=== PATIENT | female | born 1970 | race Caucasian/White ===

== ENCOUNTER 2016-11-16 11:19 | Day surgery (SDC) | payer BC ==
[2016-11-13 15:31] VITALS: BMI 21.6
[~2016-11-16 11:19] MED LIST: DEXAMETHASONE SOD PHOSPHATE 10 MG/ML 1 ML VIAL IV ONE; LACTATED RINGERS 1,000 ML IV SCH; LIDOCAINE 1% 20 ML VIAL (10MG/ML) FOR IV START INTRADERMA PRN; ONDANSETRON 4 MG/2 ML VIAL IVP ONE; Pre Op ABX Message 1 EACH MISC MISCELLANE ONE; SCOPOLAMINE 1.5MG/72HR PATCH TRANSDERM ONE; fentaNYL (PF) 50 MCG/ML 2 ML AMP IV PRN
[2016-11-16 12:06] VITALS: RESP 16
[2016-11-16] MEDS ORDERED: LACTATED RINGERS 1,000 ML IV ONE ×2 (12:25→13:49)
[2016-11-16] MEDS ORDERED: MIDAZOLAM 2 MG/2 ML VIAL ONE (12:25)
[2016-11-16] MEDS ORDERED: PROPOFOL 10 MG/ML 20 ML VIAL IV ONE (12:25)
[2016-11-16] MEDS ORDERED: ONDANSETRON 4 MG/2 ML VIAL ONE (12:25)
[2016-11-16] MEDS ORDERED: fentaNYL (PF) 50 MCG/ML 2 ML AMP ONE (12:25)
[2016-11-16 13:26] VITALS: TEMP 97.2
[2016-11-16 14:30] VITALS: BP 103/64; PULSE 64
--- NOTE | 2016-11-19 13:22 | OP ---
DATE OF SERVICE: 11/16/2016 SURGEON: MARIALUISA SILVEIRA DO MEDICAL OFFICE RECEPTIONIST ASSISTANT: PREOPERATIVE DIAGNOSIS: Cellulitis of the distal interphalangeal joint of the right middle finger. POSTOPERATIVE DIAGNOSIS: Cellulitis of the distal interphalangeal joint of the right middle finger. Culture pending. OPERATION: Incision and drainage of cyst distal interphalangeal joint of the right middle finger and antibiotic cement placement. ANESTHESIA: ESTIMATED BLOOD LOSS: SPECIMENS REMOVED: COMPLICATIONS: OPERATIVE FINDINGS: DESCRIPTION OF PROCEDURE: The patient was taken to the operative suite and placed in supine position. IV sedation was performed by the department of anesthesiology. Hibiclens scrub was carried out over the right hand. Sterile drapes applied in the usual manner. Pneumatic tourniquet was inflated to 250 mmHg. The quarter-inch Dominique drained was placed along the base of the right middle finger and digital block performed. A longitudinal incision was then made of the right middle finger. Dissection through subcutaneous tissue was performed. A dome of the cyst area at the distal portion of middle phalanx measuring approximately 1cm. The area was cultured. No evidence of purulence at this time. The debridement was performed with rongeur at the joint. The area was irrigated copiously. Antibiotic solution with cement was then mixed and a small portion was placed in the cyst area. The skin was then reapproximated with 4-0 nylon suture in interrupted fashion. The Dominique drain was removed. Pneumatic tourniquet deflated. Sterile Adaptic 4 x 4 compression dressing was applied. The patient was returned to the recovery room in satisfactory postop condition. GROSS PATHOLOGY: There was evidence of 1cm cyst at area of fixation. Patient will be followed by Department of Infectious Disease. [facility]
== END 2016-11-16 14:37 | disposition home or self-care (01) ==
LOC: OR 11:19
PROVIDERS: ATTEND Orthopaedic Surgery
DX: L03.011 Cellulitis of right finger (principal); M86.8X4 Other osteomyelitis, hand; F41.9 Anxiety disorder, unspecified; Z79.2 Long term (current) use of antibiotics; Z79.899 Other long term (current) drug therapy; Z88.1 Allergy status to other antibiotic agents; Z88.5 Allergy status to narcotic agent; Z87.891 Personal history of nicotine dependence
CPT/HCPCS: 87070; 87205; 87075; 26160; C1713; J2250; J1100; J2405; J3010; J2704

== ENCOUNTER 2016-12-19 10:52 | Inpatient (IN) | payer BC ==
[2016-12-19 11:40] VITALS: BMI 21.6
[2016-12-19] MEDS ORDERED: NALOXONE 0.4 MG/ML 1 ML VIAL IV PRN (12:08)
[2016-12-19] MEDS ORDERED: ONDANSETRON 4 MG/2 ML VIAL IVP PRN (12:08)
[2016-12-19] MEDS ORDERED: ACETAMINOPHEN TAB 325 MG TAB PO PRN (12:08)
[2016-12-19] MEDS ORDERED: HYDROcodone/APAP 5-325MG 1 EACH TAB PO PRN (12:08)
[2016-12-19 12:51] LABS: Basophils % (A) 1 %; CH 31.9; Eosinophils # (A) 0.2 k/uL (0-0.7); Eosinophils % (A) 4 %; HDW 2.32; HGB 14.8 gm/dL (11.4-16.0); Luc # (Auto) 0.11; Luc % (Auto) 2; Lymphocytes % (A) 36 %; MCH 31.6 pg (25.0-35.0); MCHC 33.5 g/dL (31.0-37.0); MCV 94.2 fL (80.0-100.0); Mean Platelet Volume 8.5; Monocytes # (A) 0.3 k/uL (0-1.0); Monocytes % (A) 6 %; Neutrophils # (A) 2.8 k/uL (1.3-7.7); Neutrophils % (A) 51 %; RBC 4.68 m/uL (3.80-5.40); RDW 13.3 % (11.5-15.5); WBC 5.4 k/uL (3.8-10.6); WBC (Perox) 5.38
[2016-12-19] MEDS: LACTATED RINGERS 1,000 ML IV SCH (12:53)
[2016-12-19 13:09] LABS: ALT 43 U/L (9-52); AST 27 U/L (14-36); Alkaline Phosphatase 34 U/L (38-126); Anion Gap 6 mmol/L; Blood Urea Nitrogen 9 mg/dL (7-17); Calcium 9.6 mg/dL (8.4-10.2); Carbon Dioxide 28 mmol/L (22-30); Chloride 107 mmol/L (98-107); Glucose 78 mg/dL (74-99); Non-African American GFR(MDRD) >60 (>60 ml/min/1.73 sqM); Potassium 4.6 mmol/L (3.5-5.1); Sodium 141 mmol/L (137-145); Total Bilirubin 0.8 mg/dL (0.2-1.3); Total Protein 6.7 g/dL (6.3-8.2)
[2016-12-19] MEDS: ERYTHROMYCIN IV 500 MG in SODIUM CHLORIDE 0.9% 250 ML IVPB SCH ×2 (13:48→18:00)
[2016-12-19] MEDS ORDERED: HYDROmorphone 1 MG/ML 1 ML SYRINGE IVP PRN (13:56)
[2016-12-19] MEDS: HYDROmorphone 1 MG/ML 1 ML SYRINGE IVP PRN ×2 (17:23→20:03)
--- NOTE | 2016-12-19 20:53 | P.CONS ---
History of Present Illness - Reason for Consult Consult date: 12/19/16 - Chief Complaint Pain in the right hand middle finger - History of Present Illness 46 year old female presents Hospital for ongoing evaluation of her right hand third finger status post trauma last year. The patient relates that she caught a [employer] football that was waterlogged resulting in the injury to the middle finger. It was pinned and originally did quite well. Eventually she developed a significant infection. In April without evidence of MSSA infection was treated originally with Ancef which causes significant skin eruption. He finished up her therapy with vancomycin. Continue to have trouble since that point in time with pain swelling and deformity to the finger. It affects her ability to do her job. She recently had further surgery where a cyst was found and this was debrided and bony segment was placed. Despite this she continues to have ongoing drainage of what she is describing is a somewhat purulent material. The finger remains deformed warm erythematous and painful. She constantly is admitted for further intervention. 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 Denies fevers, chills or rigors but has ongoing significant pain at the site. Anti-inflammatories bother her stomach greatly. Occasional [place] was helpful. Review of Systems HEENT:Denies headache or acute visual change. Denies sinus or mouth discomforts. Denies neck stiffness or pain. Denies significant oral cavity pain. Denies difficulty on swallowing. Lungs: Denies significant shortness of breath, cough, sputum production, or hemoptysis. Cardiovascular: Denies significant shortness of breath, chest pain, chest wall pain, orthopnea, dyspnea on exertion, syncope Gastrointestinal:Denies nausea, vomiting, diarrhea, constipation, hematemesis, melena, hematochezia. No no significant change of bowel habit noticed. Musculoskeletal: Has significant pain and swelling to the right hand third finger other joints are intact. Skin: As per the HPI Neuro: Denies headache or visual change. Denies any new onset weakness or difficulty with ambulation. Denies falls or seizures. Psychiatric: Difficulty with sleep and is having anxiety. Endocrine: Denies significant fatigue, denies significant weight loss or weight gain. Past Medical History Past Medical History: Musculoskeletal Disorder Additional Past Medical History / Comment(s): POST-OP STAPH INFECTION WITH OSTEOMYELITIS RIGHT MIDDLE FINGER., STATES PAIN AND SWELLING OF FINGER. History of Any Multi-Drug Resistant Organisms: None Reported Past Surgical History: Section, Hysterectomy, Orthopedic Surgery Additional Past Surgical History / Comment(s): neck surgery c4-6, laminectomy, foraminotomy. , RUPTURED TENDON WITH PIN AND REMOVAL RIGHT MIDDLE FINGER. Past Anesthesia/Blood Transfusion Reactions: No Reported Reaction Past Psychological History: No Psychological Hx Reported Additional Psychological History / Comment(s): . Lives in the home with her ex- and her children. Pet dog. 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 No experience no international travel. Tobacco smoking as a youth. No recreational drug use. No alcohol abuse Smoking Status: Never smoker Past Alcohol Use History: None Reported Additional Past Alcohol Use History / Comment(s): QUIT SMOKING APPROX 20 YRS AGO. STATES SHE WAS A SOCIAL SMOKER. Past Drug Use History: None Reported - Past Family History Mother Family Medical History: Coronary Artery Disease (CAD), Hypertension, Musculoskeletal Disorder Father Family Medical History: Cancer, Coronary Artery Disease (CAD), Hypertension, Musculoskeletal Disorder Sister(s) Family Medical History: Musculoskeletal Disorder Medications and Allergies Home Medications and Allergies Comment(s): Current Medications Acetaminophen (Tylenol Tab) 650 mg PO Q6HR PRN PRN Reason: Mild Pain or Fever > 100.5 Hydrocodone Bitart/Acetaminophen ([place] 7.5-325) 1 each PO Q4HR PRN PRN Reason: Moderate Pain Hydromorphone HCl (Dilaudid) 1 mg IVP Q4HR PRN PRN Reason: Severe Pain Last Admin: 12/19/16 20:03 Dose: 1 mg Lactated Ringer's (Lactated Ringers) 1,000 mls @ 20 mls/hr IV .Q24H [facility] Last Admin: 12/19/16 12:53 Dose: 20 mls/hr Erythromycin Lactobionate 500 (mg/ Sodium Chloride) 250 mls @ 125 mls/hr IVPB Q6HR [facility] Last Admin: 12/19/16 18:00 Dose: 125 mls/hr Naloxone HCl (Narcan) 0.2 mg IV Q2M PRN PRN Reason: Opioid Reversal Ondansetron HCl (Zofran) 4 mg IVP Q8HR PRN PRN Reason: Nausea And Vomiting Home Medications Medication Instructions Recorded Confirmed Type LORazepam [Ativan] 2 mg PO HS 11/13/16 12/19/16 History Hydrocodone/Acetaminophen [[place] 1 tab PO DAILY PRN 12/19/16 12/19/16 History 7.5-325] Allergies Allergy/AdvReac Type Severity Reaction Status Date / Time cefazolin [From Kefzol] Allergy Dyspnea Verified 12/19/16 12:04 morphine Allergy Rash/Hives Verified 12/19/16 12:04 vancomycin AdvReac Intermediate Red Man Verified 12/19/16 12:04 Syndrome- can take if infused slowly. gadodiamide AdvReac Rash/Hives Verified 12/19/16 12:04 Physical Exam Vitals: Vital Signs Temp Pulse Resp BP Pulse Ox 12/19/16 15:47 97 16 12/19/16 15:00 97.4 F L 91 16 103/81 97 12/19/16 11:28 98 F 97 16 160/100 97 Intake and Output 12/19/16 12/19/16 12/19/16 06:59 14:59 22:59 Intake Total 440 Balance 440 Intake: Intake, IV Titration 40 Amount Lactated Ringers 1,000 ml 40 @ 20 mls/hr IV .Q24H [facility] Rx#:[id number] Oral 400 Other: Weight 45.359 kg 45.359 kg Patient Weight 12/20/16 06:59 Weight 45.359 kg Pleasant but anxious 46-year-old woman HEENT: Anicteric conjunctiva are pink and moist nasal mucosa grossly intact without significant lesions, there is no thrush. Neck: The neck is supple without significant lymphadenopathy or thyromegaly. Lungs: Good bilateral air entry without significant crackles or wheezing. There is no significant bronchial sounds. There is no egophony or dullness. Heart: Regular rate and rhythm with an audible S1-S2, no S3 no S4. There is no significant murmur click or rub, PMI was nondisplaced. Abdomen: Positive bowel sounds soft and nontender without palpable masses or organomegaly. There was no guarding or rebound. Extremities: Left hand without abnormalities. Right arm shows evidence ofagain swelling to the forearm arm or wrist. There is no evidence of any epitrochlear or axillary lymphadenopathy. Right hand third finger shows evidence of the deformity distally. There is evidence of some ulceration at the base of the nail with no expressible purulence at this time. There is warmth or erythema distinct tenderness in this area. No telangiectasias under hemorrhages or petechiae The lower extremities are free from significant edema. The peripheral pulses were 2+ and symmetric. Neuro: Awake alert oriented to person place and time. There are no acute new gross focal sensory motor deficits. Results CBC & Chem 7: 12/19/16 12:16 12/19/16 12:16 Labs: Abnormal Lab Results - Last 24 Hours (Table) 12/19/16 Range/Units 12:16 Alkaline Phosphatase 34 L (38-126) U/L Microbiology - Last 24 Hours (Table) 12/19/16 11:00 Wound Culture - Preliminary Hand - Right 12/19/16 11:00 Anaerobic Culture - Preliminary Hand - Right Laboratory Results WBC 5.4 k/uL (3.8-10.6) 12/19/16 12:16 RBC 4.68 m/uL (3.80-5.40) 12/19/16 12:16 Hgb 14.8 gm/dL (11.4-16.0) 12/19/16 12:16 Hct 44.0 % (34.0-46.0) 12/19/16 12:16 MCV 94.2 fL (80.0-100.0) 12/19/16 12:16 MCH 31.6 pg (25.0-35.0) 12/19/16 12:16 MCHC 33.5 g/dL (31.0-37.0) 12/19/16 12:16 RDW 13.3 % (11.5-15.5) 12/19/16 12:16 Plt Count 225 k/uL (150-450) 12/19/16 12:16 Neutrophils % 51 % 12/19/16 12:16 Lymphocytes % 36 % 12/19/16 12:16 Monocytes % 6 % 12/19/16 12:16 Eosinophils % 4 % 12/19/16 12:16 Basophils % 1 % 12/19/16 12:16 Neutrophils # 2.8 k/uL (1.3-7.7) 12/19/16 12:16 Lymphocytes # 2.0 k/uL (1.0-4.8) 12/19/16 12:16 Monocytes # 0.3 k/uL (0-1.0) 12/19/16 12:16 Eosinophils # 0.2 k/uL (0-0.7) 12/19/16 12:16 Basophils # 0.0 k/uL (0-0.2) 12/19/16 12:16 APTT 22.5 sec (22.0-30.0) 12/19/16 12:34 Sodium 141 mmol/L (137-145) 12/19/16 12:16 Potassium 4.6 mmol/L (3.5-5.1) 12/19/16 12:16 Chloride 107 mmol/L (98-107) 12/19/16 12:16 Carbon Dioxide 28 mmol/L (22-30) 12/19/16 12:16 Anion Gap 6 mmol/L 12/19/16 12:16 BUN 9 mg/dL (7-17) 12/19/16 12:16 Creatinine 0.83 mg/dL (0.52-1.04) 12/19/16 12:16 Est GFR (MDRD) Af Amer >60 (>60 ml/min/1.73 sqM) 12/19/16 12:16 Est GFR (MDRD) Non-Af >60 (>60 ml/min/1.73 sqM) 12/19/16 12:16 Glucose 78 mg/dL (74-99) 12/19/16 12:16 Calcium 9.6 mg/dL (8.4-10.2) 12/19/16 12:16 Total Bilirubin 0.8 mg/dL (0.2-1.3) 12/19/16 12:16 AST 27 U/L (14-36) 12/19/16 12:16 ALT 43 U/L (9-52) 12/19/16 12:16 Alkaline Phosphatase 34 U/L (38-126) L 12/19/16 12:16 Total Protein 6.7 g/dL (6.3-8.2) 12/19/16 12:16 Albumin 4.3 g/dL (3.5-5.0) 12/19/16 12:16 Microbiology 12/19/16 11:00 Hand - Right Wound Culture - Preliminary 12/19/16 11:00 Hand - Right Anaerobic Culture - Preliminary Assessment and Plan (1) Osteomyelitis of finger of right hand Narrative/Plan: 46-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 Relates that she had injury to her right hand at home now many months ago. Continues to have difficulty with that site. Original pinning occurred. MSSA infection occurred. Has had some surgical interventions. She's had debridements. Most recently because of the abnormalities seen she was taken to the operating room and debridement occurred and antibiotic cement was placed into the cystic cavity that was formed. Since then she's having increasing difficulties. There is increasing pain and swelling erythema and drainage. She is now admitted. At the time of surgery tomorrow which will be a debridement. Deep tissue cultures should be sent for bacteria and fungus and acid-fast bacilli. Also pathology should be sent to further evaluate for acute and chronic osteomyelitis. Versus other pathology. Antibiotic therapy should be held until cultures at the time of surgery are obtained. Status: Acute
[2016-12-19] MEDS: LORazepam 1 MG TAB PO PRN (22:32)
[2016-12-20] MEDS: HYDROmorphone 1 MG/ML 1 ML SYRINGE IVP PRN ×5 (01:03→21:03)
[2016-12-20] MEDS ORDERED: ONDANSETRON 4 MG/2 ML VIAL IVP ONE (05:56)
[2016-12-20] MEDS: LACTATED RINGERS 1,000 ML IV SCH ×2 (07:12→12:17)
[2016-12-20] MEDS: HYDROcodone/APAP 7.5-325MG 1 EACH TAB PO PRN ×3 (07:38→21:44)
--- NOTE | 2016-12-20 10:55 | P.HPOR ---
History of Present Illness H&P Date: 12/19/16 Chief Complaint: Right middle finger infection This is a 46-year-old female who has had ongoing problems with her right middle finger since injury last year. She had a mallet finger deformity from an injury with a nerve football. The finger was pinned for male finger repair. She did well initially. However, she developed infection to the finger which has been ongoing. She has had debridements in the past. She denies fever or chills. She has had recent worsening of the finger pain. She's also had some purulent drainage from the area. She is admitted for incision and drainage of the finger as well as infectious disease evaluation. Past Medical History Past Medical History: Musculoskeletal Disorder Additional Past Medical History / Comment(s): POST-OP STAPH INFECTION WITH OSTEOMYELITIS RIGHT MIDDLE FINGER., STATES PAIN AND SWELLING OF FINGER. History of Any Multi-Drug Resistant Organisms: None Reported Past Surgical History: Section, Hysterectomy, Orthopedic Surgery Additional Past Surgical History / Comment(s): neck surgery c4-6, laminectomy, foraminotomy. , RUPTURED TENDON WITH PIN AND REMOVAL RIGHT MIDDLE FINGER. Past Anesthesia/Blood Transfusion Reactions: No Reported Reaction Past Psychological History: No Psychological Hx Reported Additional Psychological History / Comment(s): . Lives in the home with her ex- and her children. Pet dog. 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 No experience no international travel. Tobacco smoking as a youth. No recreational drug use. No alcohol abuse Smoking Status: Never smoker Past Alcohol Use History: None Reported Additional Past Alcohol Use History / Comment(s): QUIT SMOKING APPROX 20 YRS AGO. STATES SHE WAS A SOCIAL SMOKER. Past Drug Use History: None Reported - Past Family History Mother Family Medical History: Coronary Artery Disease (CAD), Hypertension, Musculoskeletal Disorder Father Family Medical History: Cancer, Coronary Artery Disease (CAD), Hypertension, Musculoskeletal Disorder Sister(s) Family Medical History: Musculoskeletal Disorder Medications and Allergies Home Medications Medication Instructions Recorded Confirmed Type LORazepam [Ativan] 2 mg PO HS 11/13/16 12/19/16 History Hydrocodone/Acetaminophen [[place] 1 tab PO DAILY PRN 12/19/16 12/19/16 History 7.5-325] Allergies Allergy/AdvReac Type Severity Reaction Status Date / Time cefazolin [From Kefzol] Allergy Dyspnea Verified 12/19/16 12:04 morphine Allergy Rash/Hives Verified 12/19/16 12:04 vancomycin AdvReac Intermediate Red Man Verified 12/19/16 12:04 Syndrome- can take if infused slowly. gadodiamide AdvReac Rash/Hives Verified 12/19/16 12:04 Physical Examination This is a pleasant 38-year-old female in no acute distress. She is alert and oriented 3 exam of the right upper extremity reveals small area of drainage from the finger wound. There is minimal erythema. There is mild soft tissue swelling. She has limited motion to the DIP joint of the finger. She has fairly good motion to the MCP joints of the fingers. Neurovascular status the upper extremity is intact. Results - Labs Labs: Abnormal Lab Results - Last 24 Hours (Table) 12/19/16 Range/Units 12:16 Alkaline Phosphatase 34 L (38-126) U/L Microbiology - Last 24 Hours (Table) 12/19/16 11:00 Gram Stain - Preliminary Hand - Right Wound Culture - Preliminary 12/19/16 11:00 Anaerobic Culture - Preliminary Hand - Right H & H 12/19/16 Range/Units 12:16 Hgb 14.8 (11.4-16.0) gm/dL Hct 44.0 (34.0-46.0) % Result Diagrams: 12/19/16 12:16 12/19/16 12:16 Assessment and Plan (1) Cellulitis of right middle finger Status: Acute (2) Osteomyelitis of finger of right hand Status: Acute (3) Status post tendon repair Status: Acute Plan: The clinical findings are discussed with the patient. She is admitted for IV antibiotics and infectious disease evaluation as well as incision and drainage of the finger. We're planning or today and will most likely keep her inpatient for 48 hours for antibiotics. We have consulted Dr. Yoo for infectious disease evaluation.
--- NOTE | 2016-12-20 11:26 | CONS ---
SUBJECTIVE: A 46-year-old white female who has had osteomyelitis on and off with chronic right hand third finger infection for 10 months, admitted for IV antibiotics and wound debridement in the morning. She is having no chest pain, shortness of breath. No lightheadedness, dizziness or syncope. She is having extreme anxiety as her hand has not healed in 10 months. ALLERGIES: MORPHINE, VANCOMYCIN, ( ), KEFZOL. HOME MEDICATIONS: Zofran, Ativan, Dilaudid. REVIEW OF SYSTEMS: PSYCH: Anxious, nervous. CARDIAC: Negative. PULMONARY: Negative. GI: Negative. : Negative. VASCULAR: Negative. HEMATOLOGIC: Negative. IMMUNE: Negative. VITAL SIGNS: Temperature 98, pulse 91 to 97, respiratory 14 to 18, blood pressure 103 to 160 over 81 to 100. O2 97% on room air. CARDIOVASCULAR: S1, S2. LUNGS: Clear. GI: Soft. HEMATOLOGIC: Negative Homans. VASCULAR: Normal dorsalis pedis and posterior radial pulses. OPHTHALMOLOGIC: Pupils are equal, round and reactive to light and accommodation. NEUROLOGIC: Alert and oriented x3. ASSESSMENT: 1. Right finger osteomyelitis third digit. 2. Cellulitis of the right hand third digit. PLAN: IV antibiotics. Wound care. Please see further orders 24 to 48 hours. MTDD
[2016-12-20] MEDS ORDERED: LACTATED RINGERS 1,000 ML IV ONE ×2 (12:08→13:15)
[2016-12-20] MEDS ORDERED: MIDAZOLAM 2 MG/2 ML VIAL IV ONE (12:24)
[2016-12-20] MEDS ORDERED: fentaNYL (PF) 50 MCG/ML 2 ML AMP IV ONE (12:25)
[2016-12-20] MEDS ORDERED: fentaNYL (PF) 50 MCG/ML 2 ML AMP ONE (13:01)
[2016-12-20] MEDS ORDERED: PROPOFOL 10 MG/ML 20 ML VIAL IV ONE (13:01)
[2016-12-20] MEDS ORDERED: LIDOCAINE 1% INJ 10MG/ML (20 ML MDV) ONE (13:01)
[2016-12-20] MEDS ORDERED: MIDAZOLAM 2 MG/2 ML VIAL ONE (13:01)
[2016-12-20] MEDS: HYDROmorphone 1 MG/ML 1 ML SYRINGE IVP ONE ×4 (14:07→14:29)
[2016-12-20] MEDS ORDERED: KETOROLAC 30 MG/ML 1 ML VIAL IVP ONE (14:16)
[2016-12-20 16:20] LABS: Basophils % (A) 0 %; CH 31.9; CHCM 34.5; Eosinophils # (A) 0.3 k/uL (0-0.7); Eosinophils % (A) 4 %; HCT 39.2 % (34.0-46.0); HDW 2.39; HGB 13.6 gm/dL (11.4-16.0); Luc # (Auto) 0.09; Luc % (Auto) 2; Lymphocytes # (A) 2.6 k/uL (1.0-4.8); Lymphocytes % (A) 44 %; MCH 32.3 pg (25.0-35.0); MCHC 34.8 g/dL (31.0-37.0); MCV 92.8 fL (80.0-100.0); Mean Platelet Volume 8.8; Monocytes # (A) 0.3 k/uL (0-1.0); Monocytes % (A) 5 %; Neutrophils # (A) 2.6 k/uL (1.3-7.7); Neutrophils % (A) 45 %; RBC 4.22 m/uL (3.80-5.40); RDW 12.7 % (11.5-15.5); WBC 5.9 k/uL (3.8-10.6); WBC (Perox) 6.12
[2016-12-20] MEDS: LORazepam 1 MG TAB PO PRN (21:03)
[2016-12-21] MEDS: HYDROmorphone 1 MG/ML 1 ML SYRINGE IVP PRN ×6 (00:57→20:36)
[2016-12-21] MEDS: LACTATED RINGERS 1,000 ML IV SCH ×3 (05:01→10:55)
[2016-12-21] MEDS: HYDROcodone/APAP 7.5-325MG 1 EACH TAB PO PRN ×4 (06:16→23:21)
[2016-12-21] MEDS ORDERED: hydrOXYzine PAMOATE 25 MG CAP PO PRN (12:46)
--- NOTE | 2016-12-21 16:35 | P.PN ---
Subjective Principal diagnosis: Right middle finger cellulitis/infection and chronic mallet finger Patient is a pleasant 46-year-old female seen at bedside this afternoon. She has had ongoing problems with her right middle finger since injury last year. She had a mallet finger deformity from an injury with a nerve football. The finger was pinned for male finger repair. She did well initially. However, she developed infection to the finger which has been ongoing. She has had debridements in the past. She denies fever or chills. She has had recent worsening of the finger pain. She's also had some purulent drainage from the area. She was admitted 12/20/2016 for incision and drainage of the finger as well as infectious disease evaluation. He has no new complaints today. Eyes numbness or tingling. Objective - Vital Signs Vital signs: Vital Signs Temp 98.2 F 12/21/16 15:00 Pulse 83 12/21/16 15:00 Resp 16 12/21/16 15:10 BP 108/66 12/21/16 15:00 Pulse Ox 97 12/21/16 15:00 Intake & Output 12/20/16 12/21/16 12/21/16 18:59 06:59 18:59 Intake Total 1260 922 160 Output Total 1 Balance 1259 922 160 Weight 45.359 kg 45.359 kg Intake: IV 900 Intake, IV Titration 360 812 160 Amount Lactated Ringers 1,000 ml 180 @ 20 mls/hr IV .Q24H [facility] Rx#:[id number] Lactated Ringers 1,000 ml 180 160 @ 20 mls/hr IV .Q24H [facility] Rx#:[id number] Lactated Ringers 1,000 ml 812 As IV [facility] Rx#: [id number] Oral 110 Output: Estimated Blood Loss 1 Other: Voiding Method Toilet Toilet # Voids 3 1 - Exam This is a pleasant 38-year-old female in no acute distress. She is alert and oriented 3 exam of the right upper extremity reveals minimal drainage today from the finger wound. There is minimal erythema. There is mild soft tissue swelling. She has limited motion to the DIP joint of the finger. She has fairly good motion to the MCP joints of the fingers. Neurovascular status the upper extremity is intact. less than 2 second cap refill is present. - Constitutional General appearance: Present: no acute distress - Psychiatric Psychiatric: Present: A&O x's 3, appropriate affect, intact judgment & insight - Labs CBC & Chem 7: 12/20/16 15:10 12/19/16 12:16 Labs: Microbiology - Last 24 Hours (Table) 12/19/16 11:00 Anaerobic Culture - Preliminary Hand - Right 12/19/16 11:00 Gram Stain - Final Hand - Right Wound Culture - Final 12/20/16 13:30 Gram Stain - Preliminary Finger - Right Third Wound Culture - Preliminary 12/20/16 13:30 Anaerobic Culture - Preliminary Finger - Right Third Assessment and Plan (1) Cellulitis of right middle finger Narrative/Plan: Microbiology is negative thus far. She is currently afebrile, her labs were within acceptable ranges. She'll continue with current regimen including IV antibiotics and infectious disease recommendations. Continue with pain management and wound care as appropriate. We will discharge upon final recommendations from infectious disease. Status: Acute Time with Patient: Less than 30
[2016-12-21] MEDS: ERYTHROMYCIN 250 MG TAB PO SCH (16:36)
--- NOTE | 2016-12-21 17:30 | P.PN ---
Subjective Principal diagnosis: Pain in right hand middle finger 46 year old female presents Hospital for ongoing evaluation of her right hand third finger status post trauma last year. The patient relates that she caught a [employer] football that was waterlogged resulting in the injury to the middle finger. It was pinned and originally did quite well. Eventually she developed a significant infection. In April without evidence of MSSA infection was treated originally with Ancef which causes significant skin eruption. He finished up her therapy with vancomycin. Continue to have trouble since that point in time with pain swelling and deformity to the finger. It affects her ability to do her job. She recently had further surgery where a cyst was found and this was debrided and bony segment was placed. Despite this she continues to have ongoing drainage of what she is describing is a somewhat purulent material. The finger remains deformed warm erythematous and painful. She constantly is admitted for further intervention. 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 Denies fevers, chills or rigors but has ongoing significant pain at the site. Anti-inflammatories bother her stomach greatly. Occasional Dresher was helpful. The patient is now undergone the incision and drainage to the right hand third finger. Deep cultures are obtained. Pathology is obtained. Other than pain at the site she's doing better. She's concerned about her pain management at home. Objective - Vital Signs Vital signs: Vital Signs Temp 98.2 F 12/21/16 15:00 Pulse 83 12/21/16 15:00 Resp 16 12/21/16 15:10 BP 108/66 12/21/16 15:00 Pulse Ox 97 12/21/16 15:00 Intake & Output 12/20/16 12/21/16 12/21/16 18:59 06:59 18:59 Intake Total 1260 922 160 Output Total 1 Balance 1259 922 160 Weight 45.359 kg 45.359 kg Intake: IV 900 Intake, IV Titration 360 812 160 Amount Lactated Ringers 1,000 ml 180 @ 20 mls/hr IV .Q24H [facility]LA[facility] Rx#:[id number] Lactated Ringers 1,000 ml 180 160 @ 20 mls/hr IV .Q24H ELA[facility] Rx#:[id number] Lactated Ringers 1,000 ml 812 As IV .[facility] Rx#: [id number] Oral 110 Output: Estimated Blood Loss 1 Other: Voiding Method Toilet Toilet # Voids 3 1 - Exam Pleasant but anxious 46-year-old woman HEENT: Anicteric conjunctiva are pink and moist nasal mucosa grossly intact without significant lesions, there is no thrush. Neck: The neck is supple without significant lymphadenopathy or thyromegaly. Lungs: Good bilateral air entry without significant crackles or wheezing. There is no significant bronchial sounds. There is no egophony or dullness. Heart: Regular rate and rhythm with an audible S1-S2, no S3 no S4. There is no significant murmur click or rub, PMI was nondisplaced. Abdomen: Positive bowel sounds soft and nontender without palpable masses or organomegaly. There was no guarding or rebound. Extremities: Left hand without abnormalities. Right arm shows evidence ofagain swelling to the forearm arm or wrist. There is no evidence of any epitrochlear or axillary lymphadenopathy. Right hand third finger shows evidence of the deformity distally. There is evidence of the surgery. The incision is well approximated with 2 lines of sutures. The overall swelling and abnormality appears to be improved since the surgery. Erythema and tenderness are improved. No telangiectasias under hemorrhages or petechiae The lower extremities are free from significant edema. The peripheral pulses were 2+ and symmetric. Neuro: Awake alert oriented to person place and time. There are no acute new gross focal sensory motor deficits. - Labs CBC & Chem 7: 12/20/16 15:10 12/19/16 12:16 Labs: Microbiology - Last 24 Hours (Table) 12/19/16 11:00 Anaerobic Culture - Preliminary Hand - Right 12/19/16 11:00 Gram Stain - Final Hand - Right Wound Culture - Final 12/20/16 13:30 Gram Stain - Preliminary Finger - Right Third Wound Culture - Preliminary 12/20/16 13:30 Anaerobic Culture - Preliminary Finger - Right Third Laboratory Results WBC 5.9 k/uL (3.8-10.6) 12/20/16 15:10 RBC 4.22 m/uL (3.80-5.40) 12/20/16 15:10 Hgb 13.6 gm/dL (11.4-16.0) 12/20/16 15:10 Hct 39.2 % (34.0-46.0) 12/20/16 15:10 MCV 92.8 fL (80.0-100.0) 12/20/16 15:10 MCH 32.3 pg (25.0-35.0) 12/20/16 15:10 MCHC 34.8 g/dL (31.0-37.0) 12/20/16 15:10 RDW 12.7 % (11.5-15.5) 12/20/16 15:10 Plt Count 160 k/uL (150-450) 12/20/16 15:10 Neutrophils % 45 % 12/20/16 15:10 Lymphocytes % 44 % 12/20/16 15:10 Monocytes % 5 % 12/20/16 15:10 Eosinophils % 4 % 12/20/16 15:10 Basophils % 0 % 12/20/16 15:10 Neutrophils # 2.6 k/uL (1.3-7.7) 12/20/16 15:10 Lymphocytes # 2.6 k/uL (1.0-4.8) 12/20/16 15:10 Monocytes # 0.3 k/uL (0-1.0) 12/20/16 15:10 Eosinophils # 0.3 k/uL (0-0.7) 12/20/16 15:10 Basophils # 0.0 k/uL (0-0.2) 12/20/16 15:10 APTT 22.5 sec (22.0-30.0) 12/19/16 12:34 Sodium 141 mmol/L (137-145) 12/19/16 12:16 Potassium 4.6 mmol/L (3.5-5.1) 12/19/16 12:16 Chloride 107 mmol/L (98-107) 12/19/16 12:16 Carbon Dioxide 28 mmol/L (22-30) 12/19/16 12:16 Anion Gap 6 mmol/L 12/19/16 12:16 BUN 9 mg/dL (7-17) 12/19/16 12:16 Creatinine 0.83 mg/dL (0.52-1.04) 12/19/16 12:16 Est GFR (MDRD) Af Amer >60 (>60 ml/min/1.73 sqM) 12/19/16 12:16 Est GFR (MDRD) Non-Af >60 (>60 ml/min/1.73 sqM) 12/19/16 12:16 Glucose 78 mg/dL (74-99) 12/19/16 12:16 Calcium 9.6 mg/dL (8.4-10.2) 12/19/16 12:16 Total Bilirubin 0.8 mg/dL (0.2-1.3) 12/19/16 12:16 AST 27 U/L (14-36) 12/19/16 12:16 ALT 43 U/L (9-52) 12/19/16 12:16 Alkaline Phosphatase 34 U/L (38-126) L 12/19/16 12:16 Total Protein 6.7 g/dL (6.3-8.2) 12/19/16 12:16 Albumin 4.3 g/dL (3.5-5.0) 12/19/16 12:16 Microbiology 12/19/16 11:00 Hand - Right Anaerobic Culture - Preliminary 12/19/16 11:00 Hand - Right Gram Stain - Final 12/19/16 11:00 Hand - Right Wound Culture - Final 12/20/16 13:30 Finger - Right Third Gram Stain - Preliminary 12/20/16 13:30 Finger - Right Third Wound Culture - Preliminary 12/20/16 13:30 Finger - Right Third Anaerobic Culture - Preliminary Assessment and Plan (1) Osteomyelitis of finger of right hand Narrative/Plan: 46-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 Relates that she had injury to her right hand at home now many months ago. Continues to have difficulty with that site. Original pinning occurred. MSSA infection occurred. Has had some surgical interventions. She's had debridements. Most recently because of the abnormalities seen she was taken to the operating room and debridement occurred and antibiotic cement was placed into the cystic cavity that was formed. Since then she's having increasing difficulties. There is increasing pain and swelling erythema and drainage. She is now admitted. At the time of surgery tomorrow which will be a debridement. Deep tissue cultures should be sent for bacteria and fungus and acid-fast bacilli. Also pathology should be sent to further evaluate for acute and chronic osteomyelitis. Versus other pathology. Antibiotic therapy should be held until cultures at the time of surgery are obtained. At this time cultures are process. She'll be followed up in the outpatient setting as to the final culture results and the results of the pathology to construct a plan of therapy for her in the outpatient setting. Her biggest challenge will be for pain control. We discussed wound healing. She needs to improve her protein intake. She is worried is going to make her fats. We discussed the importance of adequate protein intake to allow her wound healing. Also multivitamin that his zinc and vitamins BE and C are critical in her wound healing process. She hopefully will follow this advice. Status: Acute
[2016-12-21] MEDS: LORazepam 1 MG TAB PO PRN (20:36)
[2016-12-22] MEDS: HYDROmorphone 1 MG/ML 1 ML SYRINGE IVP PRN ×3 (00:17→08:21)
[2016-12-22] MEDS: ERYTHROMYCIN 250 MG TAB PO SCH ×3 (01:42→07:23)
[2016-12-22] MEDS: HYDROcodone/APAP 7.5-325MG 1 EACH TAB PO PRN (07:15)
[2016-12-22 08:35] VITALS: BP 112/63; PULSE 81; RESP 18; TEMP 98.4
--- NOTE | 2016-12-22 10:05 | PN ---
SUBJECTIVE: White female status post incision and drainage of the finger, awaiting for cultures of the wound to be done. Deep cultures are done also. Dr. Yoo recommendations are in the chart. White count is normal. Labs are normal. Await deep cultures that are done to be finalized so she can be treated with either IV antibiotics through a PICC line or oral antibiotics. Await Dr. Gandhi and Dr. Purvis's recommendations. [facility]
--- NOTE | 2016-12-22 10:46 | P.DS ---
Providers Date of admission: 12/19/16 11:07 Expected date of discharge: 12/22/16 Attending physician: Evert Gandhi Consults: 12/19/16 12:12 Consult Physician Urgent Consulting Provider: Jose L Medellin Consult Reason/Comments: medical management Do you want consulting provider notified?: Yes 12/19/16 15:08 Consult Physician Urgent Consulting Provider: Jose L Yoo Consult Reason/Comments: Infection to right middle finger Do you want consulting provider notified?: Yes Primary care physician: Jose L Medellin - Discharge Diagnosis(es) (1) Cellulitis of right middle finger Current Visit: No Status: Acute Priority: Medium (2) Osteomyelitis of finger of right hand Current Visit: No Status: Acute (3) Status post tendon repair Current Visit: No Status: Acute Hospital Course: This is a pleasant 46-year-old female who presented with ongoing right middle finger infection with mallet deformity who has continued to fail outpatient conservative therapy and other treatment. She was admitted for incision and drainage of the right middle finger as well as consultation and evaluation by infectious disease. The patient tolerated the procedure well and did well postoperatively. She has continued have pain and discomfort at the distal right middle finger. Since her finger looks the best it has been a significant period of time. She was seen and examined by Dr. Yoo yesterday. Cultures are still pending. Patient states Dr. Yoo will be out of town and she was told she should follow-up with him in the outpatient setting on Saturday, 01/02, for further evaluation. We are holding antibiotic medication until further evaluation from the pending culture results. Condition on day of discharge stable. Patient will be discharged home. Patient was cleared preoperatively for surgery. Patient currently denies any nausea, vomiting, fever, or chills. Patient is eating and voiding freely without difficulty. Patient should continue to keep sutures intact over the right distal middle finger. She should keep her incision clean, dry, intact. Do not soak the incision site in water. She may elevate and apply ice to the right middle finger and upper extremity for comfort and support as needed. She should avoid excessive activity in regards to her right middle finger and upper extremity. She given a written prescription for Kirkman 7.5 mg/[address] Gandhi discharge. She should take his medication as prescribed. Physical Exam on day of discharge: Patient is awake, alert, and oriented 3 Vital signs stable Good chest excursion with deep inspiration and expiration Abdomen soft nontender No signs or symptoms of DVT; no calf pain Evidence of 2 sutures remaining intact over right posterior distal middle finger Evidence of some generalized erythema around the incision site No evidence of active drainage from the incision site of the distal right middle finger Difficulty with performing flexion of the right middle finger Active forward range of motion of the right shoulder, elbow, wrist, and other fingers of the right hand without difficulty Neurovascularly intact right upper extremity Procedures: Incision and drainage right middle finger Patient Condition at Discharge: Stable Plan - Discharge Summary New Discharge Prescriptions: No Action LORazepam [Ativan] 2 mg PO HS Hydrocodone/Acetaminophen [Kirkman 7.5-325] 1 tab PO DAILY PRN PRN Reason: Pain Discharge Medication List LORazepam [Ativan] 2 mg PO HS 11/13/16 [History] Hydrocodone/Acetaminophen [Kirkman 7.5-325] 1 tab PO DAILY PRN 12/19/16 [History] Follow up Appointment(s)/Referral(s): Evert Gandhi DO [Doctor of Osteopathic Medicine] - 12/27/16 (Patient may follow-up with Dr. Gandhi at [facility] on 12/27/2016 following discharge. ) Jose L Yoo MD [STAFF PHYSICIAN] - 01/02/17 (Patient may follow-up with Dr. Yoo on 01/02/2017 following discharge as discussed with the patient. ) Activity/Diet/Wound Care/Special Instructions: 1. Keep sutures intact over the right distal middle finger 2. Keep incision clean, dry, and intact 3. Not soak hand in water 4. Elevated and ice middle finger and right upper extremity for comfort support as needed 5. Patient should avoid excessive activity in regards to the right middle finger and right upper extremity Discharge Disposition: HOME SELF-CARE
--- NOTE | 2016-12-25 11:36 | OP ---
DATE OF PROCEDURE: 12/20/2016 SURGEON: Evert Gandhi DO LOGISTICS SOLUTION MANAGER: none PREOPERATIVE DIAGNOSIS: Chronic inflammation DIP joint right middle finger. POSTOPERATIVE DIAGNOSIS: Chronic inflammation DIP joint right middle finger. PROCEDURE: Removal antibiotic cement dorsum of right middle finger. DESCRIPTION FOR PROCEDURE: Patient was taken to the operative suite and placed in supine position. General inhalation anesthesia was performed by Anesthesiology. Betadine prep carried out over right hand. Sterile drapes applied in the usual manner. Pneumatic tourniquet insufflated to 250 mmHg. 1 cm incision was developed dorsally. At the DIP joint of the right middle finger blunt dissection through the subcutaneous tissues. At this time the cultures were obtained. The antibiotic cement was removed. The area was irrigated copiously at this time. The area was irrigated. Skin was approximated with two sutures of 5-0 Nylon in interrupted fashion. Pneumatic tourniquet was deflated. Sterile pressure dressing was applied. Patient was transferred to recovery room in satisfactory postop condition. GROSS PATHOLOGY: There is increasing drainage at the area of antibiotic cement. Await cultures. SHEFALI
== END 2016-12-22 11:31 | disposition home or self-care (01) | DRG 540 ==
LOC: 5MS5E 11:07
PROVIDERS: ADMIT Orthopaedic Surgery; ATTEND Orthopaedic Surgery
PROC: 0RP Upper Joints, Removal (ICD-10-PCS; principal; 2016-12-20 12:30)
DX: M86.8X4 Other osteomyelitis, hand (principal); L03.113 Cellulitis of right upper limb; L03.011 Cellulitis of right finger; M20.019 Mallet finger of unspecified finger(s); F17.200 Nicotine dependence, unspecified, uncomplicated; Z79.899 Other long term (current) drug therapy
CPT/HCPCS: 80053; 85025; 85730; 87070; 87075; 87205; 88300; 93005

== ENCOUNTER → 2018-07-16 | Outpatient (CLI) | payer BC ==
--- NOTE | 2018-07-16 22:54 | MR ---
EXAMINATION TYPE: MR lumbar spine wo/w con DATE OF EXAM: 07/16/2018 COMPARISON: NONE HISTORY: 47-year-old female Radiculopathy, lumbar region Technique: Multiplanar, multisequence images of the lumbar spine were obtained before and after admin istration of 4.5 mL intravenous Gadavist gadolinium contrast. FINDINGS: Vertebral body heights are preserved. Facet arthropathy lower lumbar spine. There is trace grade 1 anterolisthesis at L4-L5. Otherwise, alignment is maintained. Degenerative disc disease at L4-L5 characterized by mild to moderate disc desiccation and diffuse dis c bulging. The remaining intervertebral discs are relatively hydrated. Conus medullaris is normal. No suspicious bone marrow placement. From T12 down through L4 levels, there is no spinal canal or foraminal stenosis. L4-L5, there is facet degenerative change with trace grade 1 anterolisthesis and diffuse disc bulge. Mild ventral impression on the thecal sac without significant spinal canal stenosis. There is minimal bilateral inferior foraminal narrowing with possible abutment of the bilateral exiting L4 nerve root s. L5-S1, facet degenerative change without significant canal or foraminal stenosis. No abnormal enhancement within the spinal canal. No prevertebral or paravertebral soft tissue modality. IMPRESSION: 1. Facet arthropathy lower lumbar spine which is grade 1 anterolisthesis at L4-L5. 2. Luvk-ok-gqbebvvf degenerative disc disease isolated at L4-L5 with disc desiccation and disc bulgin g. Disc material causes minimal bilateral inferior foraminal narrowing and may abut the exiting L4 ne rve roots. Correlate as to the level and side of radiculopathy. 3. No spinal canal stenosis.
== END ==
LOC: RADMRIMAIN 08:52
PROVIDERS: ATTEND Family Medicine
DX: M99.73 Connective tissue and disc stenosis of intervertebral foramina of lumbar region (principal); M43.16 Spondylolisthesis, lumbar region; M51.16 Intervertebral disc disorders with radiculopathy, lumbar region; M46.96 Unspecified inflammatory spondylopathy, lumbar region
CPT/HCPCS: 72158; A9585

== ENCOUNTER → 2020-04-01 | Day surgery (SDC) | payer BC ==
[2020-03-30 17:12] VITALS: BMI 22.5
[~2020-04-01] MED LIST changes: -DEXAMETHASONE SOD PHOSPHATE 10 MG/ML 1 ML VIAL IV ONE; -LACTATED RINGERS 1,000 ML IV SCH; -LIDOCAINE 1% 20 ML VIAL (10MG/ML) FOR IV START INTRADERMA PRN; +LIDOCAINE 1% INJ 10MG/ML (20 ML MDV) ONE; +MIDAZOLAM 2 MG/2 ML VIAL ONE; -ONDANSETRON 4 MG/2 ML VIAL IVP ONE; +PROPOFOL 10 MG/ML 20 ML VIAL IV ONE; -Pre Op ABX Message 1 EACH MISC MISCELLANE ONE; -SCOPOLAMINE 1.5MG/72HR PATCH TRANSDERM ONE; -fentaNYL (PF) 50 MCG/ML 2 ML AMP IV PRN; +fentaNYL (PF) 50 MCG/ML 2 ML AMP ONE
[2020-04-01 10:03] VITALS: RESP 16; TEMP 98.3
[2020-04-01] MEDS: LACTATED RINGERS 1,000 ML IV SCH ×2 (11:19→11:20)
--- NOTE | 2020-04-01 11:24 | P.GSHP ---
History of Present Illness H&P Date: 04/01/20 Chief Complaint: GERD, screening colonoscopy This a 49-year-old female presents today for EGD and screening colonoscopy. She's had issues GERD. Past Medical History Past Medical History: Musculoskeletal Disorder Additional Past Medical History / Comment(s): Hx staph infection w/ osteomyelitis Rt middle finger, post-op. Bouts of stomach pain, diarrhea. History of Any Multi-Drug Resistant Organisms: None Reported Past Surgical History: Breast Surgery, Section, Hysterectomy, Orthopedic Surgery Additional Past Surgical History / Comment(s): Neck surgery c4-6, laminectomy, foraminotomy. RUPTURED TENDON WITH PIN AND REMOVAL RIGHT MIDDLE FINGER. Breast augmentation. Past Anesthesia/Blood Transfusion Reactions: No Reported Reaction Smoking Status: Former smoker - Past Family History Mother Family Medical History: Coronary Artery Disease (CAD), Hypertension, Musculoskeletal Disorder Father Family Medical History: Cancer, Coronary Artery Disease (CAD), Hypertension, Musculoskeletal Disorder Additional Family Medical History / Comment(s): stomach, & prostate cancers, pancreas cancer Sister(s) Family Medical History: Musculoskeletal Disorder Medications and Allergies Home Medications Medication Instructions Recorded Confirmed Type Zolpidem [Ambien] 10 mg PO HS PRN 03/30/20 03/30/20 History HYDROcodone/APAP 7.5-325MG [[place] 1 tab PO Q6HR PRN 04/01/20 04/01/20 History 7.5-325] Allergies Allergy/AdvReac Type Severity Reaction Status Date / Time cefazolin [From Kefzol] Allergy Dyspnea Verified 04/01/20 09:59 morphine Allergy Rash/Hives Verified 04/01/20 09:59 vancomycin AdvReac Intermediate Red Man Verified 04/01/20 09:59 Syndrome- can take if infused slowly. gadodiamide AdvReac Rash/Hives Verified 04/01/20 09:59 Surgical - Exam Vital Signs Temp Pulse Resp BP Pulse Ox 98.3 F 80 16 121/87 100 04/01/20 10:02 04/01/20 10:02 04/01/20 10:02 04/01/20 10:02 04/01/20 10:02 - General well developed, well nourished, no distress - Eyes PERRL - ENT normal pinna - Neck no masses - Respiratory normal expansion - Cardiovascular Rhythm: regular - Abdomen Abdomen: soft, non tender Assessment and Plan Assessment: GERD. We'll perform EGD. We'll perform screening colonoscopy.
--- NOTE | 2020-04-01 11:41 | P.OP ---
Date of Procedure: 04/01/20 Preoperative Diagnosis: GERD And colonoscopy Postoperative Diagnosis: Antral gastritis Esophagitis Normal colon Procedure(s) Performed: EGD Colonoscopy Anesthesia: MAC Surgeon: Dakotah Fernandez Pathology: other Condition: stable Disposition: PACU Description of Procedure: Patient's placed on the endoscopy table lateral position. She received IV sedation. The gastroscope placed oropharynx passed in the esophagus into the stomach. Scope was placed through the pylorus. First and second portion of duodenum appeared normal. Scope was then brought back the antrum this left inflamed. A biopsies performed. Scope was unretroflexed and remainder some appeared normal. The GE junction was at 47 is. The distal esophagus appeared inflamed. A biopsies performed. The proximal esophagus appeared normal. Scope was withdrawn for patient. Next digital rectal exam was performed which revealed no abnormalities. Flexible colonoscope was then placed patient anus passed throughout the entire colon. The ileocecal valve was visualized. The cecum, ascending and transverse colon appeared normal. The descending and sigmoid colon appeared normal. Scope was withdrawn for patient.
[2020-04-01 12:10] VITALS: BP 125/80; PULSE 72
== END ==
LOC: ORWHC2ENDO 09:48
PROVIDERS: ATTEND Surgery
DX: Z12.11 Encounter for screening for malignant neoplasm of colon (principal); K29.50 Unspecified chronic gastritis without bleeding; K21.00 Gastro-esophageal reflux disease with esophagitis, without bleeding; J80 Acute respiratory distress syndrome; I10 Essential (primary) hypertension; F41.9 Anxiety disorder, unspecified; F98.8 Other specified behavioral and emotional disorders with onset usually occurring in childhood and adolescence; J44.9 Chronic obstructive pulmonary disease, unspecified; F32.9 Major depressive disorder, single episode, unspecified; H91.90 Unspecified hearing loss, unspecified ear; F51.09 Other insomnia not due to a substance or known physiological condition; M50.30 Other cervical disc degeneration, unspecified cervical region; G43.909 Migraine, unspecified, not intractable, without status migrainosus; M79.10 Myalgia, unspecified site; M60.9 Myositis, unspecified; J30.9 Allergic rhinitis, unspecified; R33.9 Retention of urine, unspecified; R42 Dizziness and giddiness; M46.1 Sacroiliitis, not elsewhere classified; Z79.891 Long term (current) use of opiate analgesic; Z79.899 Other long term (current) drug therapy; Z90.710 Acquired absence of both cervix and uterus; Z98.891 History of uterine scar from previous surgery; Z98.890 Other specified postprocedural states; Z87.891 Personal history of nicotine dependence; Z82.49 Family history of ischemic heart disease and other diseases of the circulatory system; Z82.69 Family history of other diseases of the musculoskeletal system and connective tissue; Z80.0 Family history of malignant neoplasm of digestive organs; Z80.42 Family history of malignant neoplasm of prostate; Z88.5 Allergy status to narcotic agent; Z88.1 Allergy status to other antibiotic agents; Z91.041 Radiographic dye allergy status
CPT/HCPCS: 43239; 88305; G0121; J2250; J2001; J3010; J2704; 45378

== ENCOUNTER → 2023-04-02 | Outpatient (CLI) | payer BC ==
[~2023-04-02] MED LIST changes: -LIDOCAINE 1% INJ 10MG/ML (20 ML MDV) ONE; -MIDAZOLAM 2 MG/2 ML VIAL ONE; -PROPOFOL 10 MG/ML 20 ML VIAL IV ONE; +REGADENOSON 0.4 MG/5 ML SYRINGE IV PRN; -fentaNYL (PF) 50 MCG/ML 2 ML AMP ONE
--- NOTE | 2023-04-02 10:20 | CA ---
Transthoracic Echo Report Name: Renee Farrell Age: 52 Gender: F : 1970 Exam Date: 04/02/2023 08:54 Exam Location: [place] [facility] Ht (in): 57 Wt (lb): 110 Ordering Physician: Jose L Medellin MD Attending/Referring Phys: Camera Repair Technician Luisa Connor RDCS Procedure CPT: Indications: R07.9 CHEST PAIN Cardiac Hx: Technical Quality: Good Contrast 1: Total Dose (mL): Contrast 2: Total Dose (mL): MEASUREMENTS (Male / Female) Normal Values 2D ECHO LV Diastolic Diameter PLAX 3.3 cm 4.2 - 5.9 / 3.9 - 5.3 cm LV Systolic Diameter PLAX 2.5 cm IVS Diastolic Thickness 0.8 cm 0.6 - 1.0 / 0.6 - 0.9 cm LVPW Diastolic Thickness 0.9 cm 0.6 - 1.0 / 0.6 - 0.9 cm LV Relative Wall Thickness 0.5 RV Internal Dim ED PLAX 2.5 cm LA Systolic Diameter LX 2.8 cm 3.0 - 4.0 / 2.7 - 3.8 cm LV Diastolic Volume MOD 4C 51.5 cm??? LV Systolic Volume MOD 4C 18.8 cm??? LV Ejection Fraction MOD 4C 63.5 % LV Cardiac Index MOD 4C 1329.3 cm???/min???m??? LV Diastolic Length 4C 7.8 cm LV Systolic Length 4C 6.3 cm LV Diastolic Volume MOD 2C 37.4 cm??? LV Systolic Volume MOD 2C 16.4 cm??? LV Ejection Fraction MOD 2C 56.1 % LV Cardiac Index MOD 2C 852.9 cm???/min???m??? LV Diastolic Length 2C 7.2 cm LV Systolic Length 2C 5.7 cm LA Volume 22.9 cm??? 18 - 58 / 22 - 52 cm??? LA Volume Index 16.0 cm???/m??? 16 - 28 cm???/m??? M-MODE Aortic Root Diameter MM 2.6 cm MV E Point Septal Separation 0.5 cm AV Cusp Separation MM 1.6 cm DOPPLER AV Peak Velocity 136.2 cm/s AV Peak Gradient 7.4 mmHg MV Area PHT 3.6 cm??? Mitral E Point Velocity 87.4 cm/s Mitral A Point Velocity 59.4 cm/s Mitral E to A Ratio 1.5 MV Deceleration Time 212.5 ms MV E' Velocity 9.6 cm/s Mitral E to MV E' Ratio 9.1 TR Peak Velocity 193.1 cm/s TR Peak Gradient 14.9 mmHg Right Ventricular Systolic Press 19.9 mmHg FINDINGS Left Ventricle Left ventricular ejection fraction is estimated at 55-60 %. Small left ventricular cavity. Left ventricular wall thickness normal.normal left ventricular wall motion. Normal left ventricular diastolic filling pattern. Right Ventricle Normal right ventricular size. Right ventricular systolic pressure within normal limits. Right Atrium Normal right atrial size. Left Atrium Normal left atrial size. Mitral Valve Structurally normal mitral valve. Trace mitral regurgitation. Aortic Valve Trileaflet aortic valve. No aortic valve stenosis or regurgitation. Tricuspid Valve Structurally normal tricuspid valve. Trace to mild tricuspid regurgitation. Pulmonic Valve Structurally normal pulmonic valve. No pulmonic regurgitation. Pericardium No pericardial effusion. Aorta Normal size aortic root and proximal ascending aorta. CONCLUSIONS 1. Normal left ventricular size and systolic function 2. Trace mitral and trace to mild tricuspid regurgitation Previewed by: Dr. Robert Diop MD (Electronically Signed) Final Date: 02 April 2023 10:19
--- NOTE | 2023-04-02 11:39 | CA ---
Lexiscan Nuclear Stress Test Report Name: Renee Farrell Exam Date: 04/02/2023 10:14 Exam Location: [place] Stress Ht (in): 57 Wt (lb): 110 BSA: 1.39 Ordering Phys: Milana Schwab MD Referring Phys: MILANA SCHWAB,, Technologist: Adams Sullivan Age: 52 Gender: F : 1970 Procedure CPT: Indications: R07.9 CHEST PAIN ICD-10 Codes: Patient History: Medications: VICODIN, TUMERIC Meds past 24 hrs: Pretest Chest Pain: STRESS TEST Lexiscan Protocol Exercise Duration (min:sec): 02:[address] Depressions (mm): Angina Score: Floyd Score: Resting HR (bpm): 68 Peak HR (bpm): 110 Resting BP (mmHg): 122 / 73 Peak BP (mmHg): 141 / 78 MPHR: 166 Target HR: 141 % MPHR: 66 METS: 1.0 Total Dose: Peak Dose: Atropine: Double Product: 27032 BP Response: Stress Termination: PROTOCOL COMPLETE Stress Symptoms: NO SYMPTOMS Stress Summary: ECG ANALYSIS Resting ECG: Sinus rhythm. Normal conduction. No arrhythmias. Normal repolarization. Stress ECG: No ECG changes from baseline with Lexiscan infusion. CONCLUSIONS No ECG evidence of ischemia with Lexiscan infusion. Nuclear test results to follow. Dr. Robert Diop MD (Electronically Signed) Final Date: 02 April 2023 11:38
--- NOTE | 2023-04-02 13:07 | NM ---
EXAMINATION TYPE: NM stress lexiscan cardiolite DATE OF EXAM: 04/02/2023 COMPARISON: NONE CLINICAL INDICATION: Female, 52 years old with history of R07.9 chest pain; TECHNIQUE: After the intravenous administration of 9.1 mCi Tc 99m Sestamibi - Cardiolite resting SPE CT images acquired 45 minutes post injection. The patient received 0.4mg Lexiscan, 25.0 mCi Tc 99m Sestamibi - Stress images obtained [address] injection FINDINGS: Review of stress and rest SPECT images demonstrates large areas of fixed perfusion defect along the a nterior, anteroseptal, and anterolateral moran. In addition, there is prominent adjacent GI activity. No discrete reversibility is identified. Gated analysis is very limited due to the above factors and there is estimated left ventricular ejection fraction of 51 %. TID is calculated at 0.98, within no rmal limits. IMPRESSION: Very limited evaluation given prominent GI activity along the inferior wall and very larg e fixed defects along the anterior, anteroseptal, and anterolateral moran possibly due to soft tissue attenuation artifact. Further workup with alternative testing may be needed.
== END | disposition home or self-care (01) ==
LOC: RADNMMAIN 08:12
PROVIDERS: ATTEND Family Medicine
DX: I08.1 Rheumatic disorders of both mitral and tricuspid valves (principal); R07.9 Chest pain, unspecified
CPT/HCPCS: 93017; 93306; 78452; A9500; J2785

== ENCOUNTER 2023-04-15 10:04 | Day surgery (SDC) | payer BC ==
[~2023-04-15 10:04] MED LIST changes: +LACTATED RINGERS 1,000 ML IV SCH; -REGADENOSON 0.4 MG/5 ML SYRINGE IV PRN
[2023-04-15] MEDS ORDERED: LIDOCAINE 1% (10MG/ML) FOR IV START INTRADERMA ONE (10:31)
[2023-04-15 10:36] VITALS: RESP 16; TEMP 98
[2023-04-15] MEDS ORDERED: MIDAZOLAM 2 MG/2 ML VIAL IVP ONE (10:44)
[2023-04-15] MEDS ORDERED: LIDOCAINE 1% INJ 10MG/ML (20 ML MDV) ONE (11:58)
[2023-04-15] MEDS ORDERED: PROPOFOL 10 MG/ML 20 ML VIAL IV ONE (11:58)
[2023-04-15] MEDS ORDERED: MIDAZOLAM 2 MG/2 ML VIAL ONE (11:58)
[2023-04-15] MEDS ORDERED: fentaNYL (PF) 50 MCG/ML 2 ML AMP ONE (11:58)
--- NOTE | 2023-04-15 12:01 | P.GSHP ---
History of Present Illness H&P Date: 04/15/23 Chief Complaint: GERD, abdominal pain 72-year-old female who is currently to GERD and abdominal pain. Patient presents today for EGD and screening colonoscopy Past Medical History Past Medical History: Musculoskeletal Disorder Additional Past Medical History / Comment(s): Hx staph infection w/ osteomyelitis Rt middle finger, post-op. Bouts of stomach pain, diarrhea. History of Any Multi-Drug Resistant Organisms: None Reported Past Surgical History: Breast Surgery, Section, Hysterectomy, Orthopedic Surgery Additional Past Surgical History / Comment(s): Neck surgery c4-6, laminectomy, foraminotomy. RUPTURED TENDON WITH PIN AND REMOVAL RIGHT MIDDLE FINGER. Breast augmentation. Past Anesthesia/Blood Transfusion Reactions: No Reported Reaction Past Psychological History: No Psychological Hx Reported Additional Psychological History / Comment(s): l. Tobacco smoking as a youth. No recreational drug use. No alcohol abuse Smoking Status: Former smoker Past Alcohol Use History: None Reported Additional Past Alcohol Use History / Comment(s): Quit smoking 1999, was a social smoker. Past Drug Use History: None Reported - Past Family History Mother Family Medical History: Coronary Artery Disease (CAD), Hypertension, Musculoskeletal Disorder Father Family Medical History: Cancer, Coronary Artery Disease (CAD), Hypertension, Musculoskeletal Disorder Additional Family Medical History / Comment(s): stomach, & prostate cancers, pancreas cancer Sister(s) Family Medical History: Musculoskeletal Disorder Medications and Allergies Home Medications Medication Instructions Recorded Confirmed Type HYDROcodone/APAP 10-325MG [[place] 1 tab PO Q6H PRN 04/11/23 04/11/23 History 10-325] Allergies Allergy/AdvReac Type Severity Reaction Status Date / Time cefazolin [From Kefzol] Allergy Dyspnea Verified 04/15/23 10:20 gadodiamide AdvReac Rash/Hives Verified 04/15/23 10:20 Surgical - Exam Vital Signs Temp Pulse Resp BP Pulse Ox 98.0 F 75 16 171/84 98 04/15/23 10:28 04/15/23 10:28 04/15/23 10:28 04/15/23 10:28 04/15/23 10:28 - General well developed, well nourished, no distress - Eyes PERRL - ENT normal pinna - Neck no masses - Respiratory normal expansion - Cardiovascular Rhythm: regular - Abdomen Abdomen: soft, non tender Assessment and Plan Assessment: GERD, dumping. We'll perform EGD and screening colonoscopy.
--- NOTE | 2023-04-15 12:23 | P.OP ---
Date of Procedure: 04/15/23 Preoperative Diagnosis: GERD Abdominal pain Screening colonoscopy Postoperative Diagnosis: Antral gastritis Mild esophagitis Normal colon Procedure(s) Performed: EGD Colonoscopy Anesthesia: MAC Surgeon: Dakotah Fernandez Pathology: other (Antrum, esophagus) Condition: stable Disposition: PACU Description of Procedure: The patient's placed on the endoscopy table in the lateral position. She received IV sedation. The gastro-/oropharynx passed in the esophagus into the stomach. Scope was pylorus. The first and second portion of the duodenum appeared normal. Scope summer back the antrum this. Mildly inflamed. A biopsies performed. The scope was unretroflexed and remainder of the stomach appeared normal. There was no significant hiatal hernia. The GE junction was at 40 cm. The distal esophagus appeared minimally inflamed. A biopsies performed. The proximal esophagus appeared normal. Scope withdrawn for patient. Next digital rectal exam was performed. This revealed no abnormalities. The flexible colonoscope was then placed patient anus and passed throughout the entire colon. The ileocecal valve was visualized. The cecum, ascending and transverse colon appeared normal. The descending and sigmoid colon appeared normal. Copious then withdrawn into the rectum this appeared normal. Scope withdrawn for patient.
[2023-04-15 13:02] VITALS: BP 101/54; PULSE 81
== END 2023-04-15 13:20 | disposition home or self-care (01) ==
LOC: ORWHC2ENDO 10:04
PROVIDERS: ATTEND Surgery
DX: Z12.11 Encounter for screening for malignant neoplasm of colon (principal); K29.50 Unspecified chronic gastritis without bleeding; K21.00 Gastro-esophageal reflux disease with esophagitis, without bleeding; Z88.1 Allergy status to other antibiotic agents; Z87.891 Personal history of nicotine dependence; Z91.041 Radiographic dye allergy status; Z79.899 Other long term (current) drug therapy
CPT/HCPCS: 88305; 45378; 43239; J2250; J2001; J3010; J2704; 45385

== ENCOUNTER 2023-05-10 08:13 | Day surgery (SDC) | payer BC ==
[2023-05-07 13:37] VITALS: BMI 23.8
[~2023-05-10 08:13] MED LIST changes: +ACETAMINOPHEN TAB 500 MG TAB PO PRN; +CLINDAMYCIN 900 MG in DEXTROSE 5% IN WATER 50 ML IVPB PRN; +DEXAMETHASONE SOD PHOSPHATE 4 MG/ML 1 ML VIAL IV ONE; +GENTAMICIN 250 MG in SODIUM CHLORIDE 0.9% 100 ML IVPB PRN; +HEPARIN SODIUM,PORCINE 5,000 UNIT/ML 1 ML VIAL SQ PRN; +HYDROmorphone 0.5 MG/0.5 ML SYRINGE IVP PRN; +LIDOCAINE 1% (10MG/ML) FOR IV START INTRADERMA PRN; +ONDANSETRON 4 MG/2 ML VIAL IVP ONE; +SCOPOLAMINE 1 MG/72 HR PATCH TRANSDERM ONE; +droPERidol 5 MG/2 ML VIAL IVP ONE
[2023-05-10] MEDS ORDERED: LIDOCAINE 1%-EPI 1:100,000 50 ML VIAL SQ ONE ×2 (08:47→09:46)
[2023-05-10] MEDS ORDERED: PHENYLEPHRINE-0.9% NACL SYG 1,000 MCG/10 ML SYRINGE ONE (09:28)
[2023-05-10] MEDS ORDERED: GLYCOPYRROLATE 0.2 MG/ML 2 ML VIAL ONE (09:28)
[2023-05-10] MEDS ORDERED: LIDOCAINE 1% INJ 10MG/ML (20 ML MDV) ONE (09:28)
[2023-05-10] MEDS ORDERED: fentaNYL (PF) 50 MCG/ML 2 ML AMP ONE (09:28)
[2023-05-10] MEDS ORDERED: KETOROLAC 15 MG/ML 1 ML VIAL ONE (09:28)
[2023-05-10] MEDS ORDERED: ePHEDrine 50 MG/ML 1 ML VIAL ONE (09:28)
[2023-05-10] MEDS ORDERED: NEOSTIGMINE 1 MG/ML 10 ML VIAL ONE (09:28)
[2023-05-10] MEDS ORDERED: SUGAMMADEX SODIUM 200 MG/2 ML SDV IV ONE (09:28)
[2023-05-10] MEDS ORDERED: ROCURONIUM 10 MG/ML (5 ML VIAL) IV ONE (09:28)
[2023-05-10] MEDS ORDERED: MIDAZOLAM 2 MG/2 ML VIAL ONE (09:28)
[2023-05-10] MEDS ORDERED: PROPOFOL 10 MG/ML 20 ML VIAL IV ONE (09:28)
[2023-05-10] MEDS ORDERED: SUCCINYLCHOLINE CHLORIDE 200 MG/10 ML VIAL IV ONE (09:28)
--- NOTE | 2023-05-10 10:07 | P.OP ---
Date of Procedure: 05/10/23 Preoperative Diagnosis: Cholecystitis Postoperative Diagnosis: Cholecystitis Procedure(s) Performed: Laparoscopic cholecystectomy Anesthesia: ARTEM Surgeon: Dakotah Fernandez Estimated Blood Loss (ml): 5 Pathology: other (Gallbladder) Condition: stable Disposition: PACU Description of Procedure: The patient was placed on the operating table. The patient received a general endotracheal tube anesthesia. The patients abdomen was prepped and draped in the usual sterile fashion. Through an infraumbilical stab incision, the fascia of the anterior abdominal wall was grasped with a pair of Kochers and then the Veress needle was placed in the peritoneal cavity. Position of the Veress needle was confirmed with positive drop test. The abdomen was then insufflated. After adequate insufflation, the 10 mm trocar was placed in the peritoneal cavity. Following this the laparoscope was placed in the peritoneal cavity. The patient was placed in the head-up, right side up position and then a 5 mm trocar was placed in the right lateral and right subcostal position under direct visualization. A 8 mm trocar was placed in the epigastric position. The gallbladder was grasped in the fundus and infundibulum. Traction on the gallbladder was placed in the lateral and the cephalad positions. The triangle of Calot was visualized.. The cystic duct was bluntly dissected until the union of the cystic duct and common bile duct was seen. A critical view of safety was achieved. The cystic duct was then divided and sealed with the Harmonic scissors. A PDS Endoloop was then placed throughout the cystic duct stump. The cystic artery divided and sealed with the Harmonic scissors. The gallbladder was then removed from the liver bed using Harmonic scissors. The gallbladder was then extracted through the epigastric port site. Operative field was checked for any bleeding spots and Harmonic scissors was used to coagulate the liver bed. The abdomen was irrigated. The trocars were removed. The skin was closed using interrupted 3-0 Vicryl suture. Dermabond dressing were applied. The patient tolerated the procedure well.
[2023-05-10] MEDS ORDERED: HYDROmorphone 0.5 MG/0.5 ML SYRINGE IVP ONE ×3 (10:30→10:40)
[2023-05-10 10:34] VITALS: TEMP 97.1
[2023-05-10] MEDS ORDERED: fentaNYL (PF) 50 MCG/ML 2 ML AMP IVP ONE ×4 (10:47→11:07)
[2023-05-10] MEDS ORDERED: LACTATED RINGERS 1,000 ML IV ONE (11:27)
[2023-05-10 11:54] VITALS: RESP 16
[2023-05-10 12:19] VITALS: BP 99/60; PULSE 72
== END 2023-05-10 12:30 | disposition home or self-care (01) ==
LOC: OR 08:13
PROVIDERS: ATTEND Surgery
DX: K81.2 Acute cholecystitis with chronic cholecystitis (principal); Z88.1 Allergy status to other antibiotic agents; Z88.8 Allergy status to other drugs, medicaments and biological substances; Z90.49 Acquired absence of other specified parts of digestive tract; Z98.890 Other specified postprocedural states; Z87.891 Personal history of nicotine dependence; Z79.899 Other long term (current) drug therapy; Z82.49 Family history of ischemic heart disease and other diseases of the circulatory system
CPT/HCPCS: 47562; 88304; J2250; J0330; J1644; J1100; J2710; J2405; J2001; J3010; J1580; J1885; J2704; J1170; J2371; J0736

== ENCOUNTER 2023-05-15 12:05 | Emergency (ER) | payer BC ==
[2023-05-15 12:27] VITALS: TEMP 98.3
[2023-05-15] MEDS ORDERED: SODIUM CHLORIDE 0.9% 1,000 ML IV STA (12:31)
--- NOTE | 2023-05-15 12:32 | ED ---
SOB HPI - General Chief Complaint: Shortness of Breath Stated Complaint: RASHMI,Post Op Comp Galbladder Removal Time Seen by Provider: 05/15/23 12:28 Source: patient, RN notes reviewed, old records reviewed Mode of arrival: ambulatory Limitations: no limitations - History of Present Illness Initial Comments: This is a 52-year-old female to the emergency department for evaluation. Patient comes in with multiple complaints according shortness of breath or abdominal pain recent gallbladder surgery. Patient has had history of multiple surgeries in the past and states the surgery different than her normal surgery she is increasingly weak decreased appetite not feeling well sleeping a lot fatigue. No fevers no other travel history or sick contacts and no other new complaints MD Complaint: shortness of breath, cough, chest pain, pain with inspiration, anxiety (Abdominal pain) -: days(s) Severity: severe Severity scale (1-10): 10 Quality: aching, throbbing Consistency: constant Improves With: nothing Worsens With: exertion Context: anxiety, trauma/injury (Recent surgery), recent illness Associated Symptoms: chest pain, pain with inspiration, cough, lower abdominal swelling, palpitations Treatments Prior to Arrival: none - Related Data Home Medications Medication Instructions Recorded Confirmed Dextroamphetamine/Amphetamine 30 mg PO BID PRN 05/15/23 05/15/23 [Adderall] Ergocalciferol [Vitamin D2 (1250 1,250 mcg PO Q14D 05/15/23 05/15/23 Mcg = 50491 Iu)] Testosterone Cypionate 200 mg IM Q14D 05/15/23 05/15/23 [Depo-Testosterone] Zolpidem [Ambien] 10 mg PO HS PRN 05/15/23 05/15/23 oxyCODONE HCL/ACETAMINOPHEN 1 tab PO BID PRN 05/15/23 05/15/23 [Percocet 10-325 mg] Previous Rx's Medication Instructions Recorded Acetaminophen Tab [Tylenol] 650 mg PO Q6H #30 tab 05/10/23 Docusate [Colace] 100 mg PO BID #20 capsule 05/10/23 Ibuprofen [Motrin] 600 mg PO Q6HR PRN #40 tab 05/10/23 oxyCODONE HCL [OxyIR] 5 mg PO Q6H PRN 3 Days #10 tab 05/10/23 Allergies Allergy/AdvReac Type Severity Reaction Status Date / Time cefazolin [From Kezol] Allergy Dyspnea Verified 05/15/23 14:58 gadodiamide AdvReac Rash/Hives Verified 05/15/23 14:58 Iodinated Contrast Media AdvReac Itching Verified 05/15/23 14:58 Review of Systems ROS Statement: Those systems with pertinent positive or pertinent negative responses have been documented in the HPI. ROS Other: All systems not noted in ROS Statement are negative. Past Medical History Past Medical History: Musculoskeletal Disorder Additional Past Medical History / Comment(s): Hx staph infection w/ osteomyelitis Rt middle finger, post-op. History of Any Multi-Drug Resistant Organisms: None Reported Past Surgical History: Back Surgery, Breast Surgery, Section, Cholecystectomy, Hysterectomy, Orthopedic Surgery Additional Past Surgical History / Comment(s): Neck surgery c4-6, laminectomy, foraminotomy. RUPTURED TENDON WITH PIN AND REMOVAL RIGHT MIDDLE FINGER. Breast augmentation. Past Anesthesia/Blood Transfusion Reactions: No Reported Reaction Past Psychological History: No Psychological Hx Reported Smoking Status: Former smoker Past Alcohol Use History: None Reported Past Drug Use History: None Reported - Past Family History Mother Family Medical History: Coronary Artery Disease (CAD), Hypertension, Musculoskeletal Disorder Father Family Medical History: Cancer, Coronary Artery Disease (CAD), Hypertension, Musculoskeletal Disorder Additional Family Medical History / Comment(s): stomach, & prostate cancers, pancreas cancer Sister(s) Family Medical History: Musculoskeletal Disorder General Exam Limitations: no limitations General appearance: alert, in no apparent distress, anxious Head exam: Present: atraumatic, normocephalic, normal inspection Eye exam: Present: normal appearance, PERRL, EOMI. Absent: scleral icterus, conjunctival injection, periorbital swelling ENT exam: Present: normal exam, mucous membranes moist Neck exam: Present: normal inspection. Absent: tenderness, meningismus, lymphadenopathy Respiratory exam: Present: normal lung sounds bilaterally. Absent: respiratory distress, wheezes, rales, rhonchi, stridor Cardiovascular Exam: Present: normal rhythm, tachycardia, normal heart sounds. Absent: systolic murmur, diastolic murmur, rubs, gallop, clicks GI/Abdominal exam: Present: soft, distended, tenderness, guarding, normal bowel sounds. Absent: rebound, rigid Extremities exam: Present: normal inspection, full ROM, normal capillary refill. Absent: tenderness, pedal edema, joint swelling, calf tenderness Back exam: Present: normal inspection Neurological exam: Present: alert, oriented X3, CN II-XII intact Psychiatric exam: Present: normal affect, normal mood Skin exam: Present: warm, dry, intact, normal color. Absent: rash Course Vital Signs 05/15/23 05/15/23 05/15/23 12:17 16:28 17:24 Temperature 98.3 F Pulse Rate 88 86 77 Respiratory 17 18 18 Rate Blood Pressure 130/85 148/98 140/91 O2 Sat by Pulse 99 99 98 Oximetry - Reevaluation(s) Reevaluation #1: Medical records reviewed Reevaluation #2: Patient symptoms are improved Reevaluation #3: Patient informed of results questions answered Reevaluation #4: Was pt. sent in by a medical professional or institution (СВЕТЛАНА Toro, CONTENT DEVELOPMENT MANAGER, urgent care, hospital, or penitentiary...) When possible be specific @ -no Did you speak to anyone other than the patient for history (EMS, parent, family, police, friend...)? What history was obtained from this source @ -no Did you review nursing and triage notes (agree or disagree)? Why? @ -agree Are old charts reviewed (outside hosp., previous admission, EMS record, old EKG, old radiological studies, urgent care reports/EKG's, penitentiary records)? Report findings @ -yes Differential Diagnosis (chest pain, altered mental status, abdominal pain women, abdominal pain men, vaginal bleeding, weakness, fever, dyspnea, syncope, headache, dizziness, GI bleed, back pain, seizure, CVA, palpatations, mental health, musculoskeletal)? @ -prior EKG interpreted by me (3pts min.). @ -yes X-rays interpreted by me (1pt min.). @ -no CT interpreted by me (1pt min.). @ -yes negative for PE or acute disease U/S interpreted by me (1pt. min.). @ -no What testing was considered but not performed or refused? (CT, X-rays, U/S, labs)? Why? @ -none What meds were considered but not given or refused? Why? @ -none Did you discuss the management of the patient with other professionals (professionals i.e. СВЕТЛАНА Toro, CONTENT DEVELOPMENT MANAGER, lab, RT, psych nurse, social professionals, cyber security manager, teacher, safety and security officer, insurance case manager)? Give summary @ -no Was smoking cessation discussed for >3mins.? @ -no Was critical care preformed (if so, how long)? @ -no Were there social determinants of health that impacted care today? How? (Homelessness, low income, unemployed, alcoholism, drug addiction, transportation, low edu. Level, literacy, decrease access to med. care, halfway, rehab)? @ -none Was there de-escalation of care discussed even if they declined (Discuss DNR or withdrawal of care, Hospice)? DNR status @ -no What co-morbidities impacted this encounter? (DM, HTN, Smoking, COPD, CAD, Cancer, CVA, ARF, Chemo, Hep., AIDS, mental health diagnosis, sleep apnea, morbid obesity)? @ -none Was patient admitted / discharged? Hospital course, mention meds given and route, prescriptions, significant lab abnormalities, going to OR and other pertinent info. @ - 52 female to the emergency department for evaluation of postoperative abdominal pain severe shortness of breath, patient has normal computed tomography scan here in the ER and symptoms are dramatically improved here in the emergency room. Patient feels well can be discharged home Discharge Undiagnosed new problem with uncertain prognosis? @ -no Drug Therapy requiring intensive monitoring for toxicity (Heparin, Nitro, Insulin, Cardizem)? @ -no Were any procedures done? @ -no Diagnosis/symptom? @ -Chest pain postoperative pain Acute, or Chronic, or Acute on Chronic? @ -Acute Uncomplicated (without systemic symptoms) or Complicated (systemic symptoms)? @ -Complicated Side effects of treatment? @ -no Exacerbation, Progression, or Severe Exacerbation? @ -exacerbation Poses a threat to life or bodily function? How? (Chest pain, USA, IA, pneumonia, PE, COPD, DKA, ARF, appy, cholecystitis, CVA, Diverticulitis, Homicidal, Suicidal, threat to staff... and all critical care pts) @ -yes with significant postoperative complication and chest pain Reevaluation #5: Differential Dyspnea: Coronary syndrome, arrhythmia, tamponade, asthma, COPD, pulmonary embolism, pneumonia, pneumothorax, pulmonary effusion, anaphylaxis, diabetic ketoacidosis, flailed chest, pulmonary contusion, diaphragmatic rupture, anemia, neuromuscular, this is not meant to be an all-inclusive list. Differential Abdominal Pain Women: Appendicitis, Cholecystitis, diverticulosis, ischemic bowel, pancreatitis, hepatitis, UTI, gastroenteritis, AAA, incarcerated hernia, bowel obstruction, constipation, inflammatory bowel, hepatitis, peptic ulcer disease, splenic infarction, perforated viscus, vulvitis, ovarian torsion, PID, kidney stone, placenta abruption, this is not meant to be an all-inclusive list Medical Decision Making - Medical Decision Making 52 female to the emergency department for evaluation of postoperative abdominal pain severe shortness of breath, patient has normal computed tomography scan here in the ER and symptoms are dramatically improved here in the emergency room. Patient feels well can be discharged home - Lab Data Result diagrams: 05/15/23 12:46 05/15/23 12:46 Lab Results 05/15/23 05/15/23 05/15/23 Range/Units 12:46 12:46 12:46 WBC 6.5 (3.8-10.6) k/uL RBC 4.87 (3.80-5.40) m/uL Hgb 14.7 (11.4-16.0) gm/dL Hct 43.7 (34.0-46.0) % MCV 89.6 (80.0-100.0) fL MCH 30.2 (25.0-35.0) pg MCHC 33.7 (31.0-37.0) g/dL RDW 12.2 (11.5-15.5) % Plt Count 233 (150-450) k/uL MPV 8.1 Neutrophils % 52 % Lymphocytes % 40 % Monocytes % 4 % Eosinophils % 3 % Basophils % 1 % Neutrophils # 3.4 (1.3-7.7) k/uL Lymphocytes # 2.6 (1.0-4.8) k/uL Monocytes # 0.3 (0-1.0) k/uL Eosinophils # 0.2 (0-0.7) k/uL Basophils # 0.1 (0-0.2) k/uL PT 10.4 (10.0-12.5) sec INR 0.9 (<1.2) APTT 23.0 (22.0-30.0) sec D-Dimer 1.44 H (<0.60) mg/L FEU Sodium 140 (137-145) mmol/L Potassium 4.7 (3.5-5.1) mmol/L Chloride 101 (98-107) mmol/L Carbon Dioxide 30 (22-30) mmol/L Anion Gap 9 mmol/L BUN 14 (7-17) mg/dL Creatinine 0.73 (0.52-1.04) mg/dL Est GFR (CKD-EPI)AfAm >90 (>60 ml/min/1.73 sqM) Est GFR (CKD-EPI)NonAf >90 (>60 ml/min/1.73 sqM) Glucose 93 (74-99) mg/dL Plasma Lactic Acid Alireza (0.7-2.0) mmol/L Calcium 9.7 (8.4-10.2) mg/dL Magnesium 2.1 (1.6-2.3) mg/dL Total Bilirubin 0.6 (0.2-1.3) mg/dL AST 44 H (14-36) U/L ALT 97 H (4-34) U/L Alkaline Phosphatase 51 (38-126) U/L Troponin I (0.000-0.034) ng/mL NT-Pro-B Natriuret Pep <20 pg/mL Total Protein 7.2 (6.3-8.2) g/dL Albumin 4.4 (3.5-5.0) g/dL SARS-CoV-2 (PCR) (Not Detectd) 05/15/23 05/15/23 05/15/23 Range/Units 12:46 12:46 16:23 WBC (3.8-10.6) k/uL RBC (3.80-5.40) m/uL Hgb (11.4-16.0) gm/dL Hct (34.0-46.0) % MCV (80.0-100.0) fL MCH (25.0-35.0) pg MCHC (31.0-37.0) g/dL RDW (11.5-15.5) % Plt Count (150-450) k/uL MPV Neutrophils % % Lymphocytes % % Monocytes % % Eosinophils % % Basophils % % Neutrophils # (1.3-7.7) k/uL Lymphocytes # (1.0-4.8) k/uL Monocytes # (0-1.0) k/uL Eosinophils # (0-0.7) k/uL Basophils # (0-0.2) k/uL PT (10.0-12.5) sec INR (<1.2) APTT (22.0-30.0) sec D-Dimer (<0.60) mg/L FEU Sodium (137-145) mmol/L Potassium (3.5-5.1) mmol/L Chloride (98-107) mmol/L Carbon Dioxide (22-30) mmol/L Anion Gap mmol/L BUN (7-17) mg/dL Creatinine (0.52-1.04) mg/dL Est GFR (CKD-EPI)AfAm (>60 ml/min/1.73 sqM) Est GFR (CKD-EPI)NonAf (>60 ml/min/1.73 sqM) Glucose (74-99) mg/dL Plasma Lactic Acid [place] 1.0 (0.7-2.0) mmol/L Calcium (8.4-10.2) mg/dL Magnesium (1.6-2.3) mg/dL Total Bilirubin (0.2-1.3) mg/dL AST (14-36) U/L ALT (4-34) U/L Alkaline Phosphatase (38-126) U/L Troponin I <0.012 (0.000-0.034) ng/mL NT-Pro-B Natriuret Pep pg/mL Total Protein (6.3-8.2) g/dL Albumin (3.5-5.0) g/dL SARS-CoV-2 (PCR) Detected A (Not Detectd) - EKG Data -: EKG Interpreted by Me (EKG is sinus 78 NV 145 QRS 90 QTC 389) - Radiology Data Radiology results: report reviewed (CTA chest and pelvis negative for traumatic postoperative disease or PE), image reviewed Disposition Clinical Impression: Postoperative pain, Chest pain, Abdominal pain, Shortness of breath Disposition: HOME SELF-CARE Condition: Fair Instructions (If sedation given, give patient instructions): Pain Management After Surgery (DC) Is patient prescribed a controlled substance at d/c from ED?: No Referrals: Jose L Medellin MD [Primary Care Provider] - 1-2 days Time of Disposition: 17:00
[2023-05-15 12:55] LABS: Basophils # (A) 0.1 k/uL (0-0.2); Basophils % (A) 1 %; Eosinophils # (A) 0.2 k/uL (0-0.7); Eosinophils % (A) 3 %; HCT 43.7 % (34.0-46.0); HGB 14.7 gm/dL (11.4-16.0); Lymphocytes # (A) 2.6 k/uL (1.0-4.8); Lymphocytes % (A) 40 %; MCH 30.2 pg (25.0-35.0); MCHC 33.7 g/dL (31.0-37.0); MCV 89.6 fL (80.0-100.0); Mean Platelet Volume 8.1; Monocytes # (A) 0.3 k/uL (0-1.0); Monocytes % (A) 4 %; Neutrophils # (A) 3.4 k/uL (1.3-7.7); Neutrophils % (A) 52 %; Platelet Count 233 k/uL (150-450); RBC 4.87 m/uL (3.80-5.40); RDW 12.2 % (11.5-15.5); WBC 6.5 k/uL (3.8-10.6)
[2023-05-15 13:09] LABS: INR 0.9 (<1.2); Prothrombin Time 10.4 sec (10.0-12.5)
[2023-05-15] MEDS ORDERED: PROCHLORPERAZINE INJ 10 MG/2 ML VIAL IVP STA (13:19)
[2023-05-15] MEDS ORDERED: HYDROmorphone 1 MG/ML 1 ML SYRINGE IVP STA (13:19)
[2023-05-15 13:30] LABS: ALT 97 U/L (4-34); AST 44 U/L (14-36); African American GFR (CKD) >90 (>60 ml/min/1.73 sqM); Albumin 4.4 g/dL (3.5-5.0); Alkaline Phosphatase 51 U/L (38-126); Anion Gap 9 mmol/L; Blood Urea Nitrogen 14 mg/dL (7-17); Calcium 9.7 mg/dL (8.4-10.2); Carbon Dioxide 30 mmol/L (22-30); Chloride 101 mmol/L (98-107); Glucose 93 mg/dL (74-99); Magnesium 2.1 mg/dL (1.6-2.3); Non-African American GFR(CKD) >90 (>60 ml/min/1.73 sqM); Potassium 4.7 mmol/L (3.5-5.1); Sodium 140 mmol/L (137-145); Total Bilirubin 0.6 mg/dL (0.2-1.3); Total Protein 7.2 g/dL (6.3-8.2)
[2023-05-15 13:39] LABS: NT-Pro-B-Type Natriuretic Pept <20 pg/mL
--- NOTE | 2023-05-15 14:31 | CT ---
EXAMINATION TYPE: CT angio chest DATE OF EXAM: 05/15/2023 COMPARISON: None HISTORY: 52-year-old female Chest pain abdominal pain post gallbladder sx on Saturday TECHNIQUE: Contiguous axial scanning of the chest after the administration of 100 mL of Isovue 370. Coronal/sagittal reconstructions performed. CT DLP: 168mGycm. Automatic exposure control utilized for a dose reduction. FINDINGS: Bilateral breast implants are present. Heart normal size without pericardial effusion. No flattening of the interventricular septum or reflu x of contrast into the hepatic veins. Aorta normal caliber with conventional arch was a branching anatomy. Satisfactory opacification of the pulmonary arterial system without evidence for pulmonary embolus. No thoracic lymphadenopathy by CT size criteria. Hazy dependent atelectasis along with strandy left lower lobe atelectasis. No consolidation or pleura l effusion. Abdomen reported separately. Bones: No osseous destructive process. IMPRESSION: No evidence for pulmonary embolus. Some mild dependent atelectasis. No acute pulmonary process seen.
--- NOTE | 2023-05-15 14:39 | CT ---
EXAMINATION TYPE: CT abdomen pelvis w con DATE OF EXAM: 05/15/2023 COMPARISON: NONE HISTORY: 52-year-old female Chest pain abdominal pain status post gallbladder sx on Saturday TECHNIQUE: Contiguous axial scanning of the abdomen and pelvis following administration of 100 ml Iso francy 300 IV contrast. Delayed images through the kidneys and coronal/sagittal reconstructions perform ed. CT DLP: 467.5 mGycm Automated exposure control for dose reduction was used. FINDINGS: LUNG BASES: Chest reported separately. LIVER/GB: Bile duct dilated up to 1 cm along with intrahepatic biliary ductal dilatation. Lower bile duct 6 mm in caliber. No internal filling defect apparent by CT. PANCREAS: No significant abnormality is seen. SPLEEN: No significant abnormality is seen. ADRENALS: No significant abnormality is seen. KIDNEYS: No significant abnormality is seen. BOWEL: Prominent fluid-filled small bowel loops mid to lower abdomen and pelvis. Moderate stool burde n. No pericolonic inflammatory change. Normal appendix. No dilated small bowel. LYMPH NODES: No significant abnormality is seen. OTHER: No free air or free fluid. PELVIS: Prominent distention of the urinary bladder. Multiple pelvic phlebolith. Uterus surgically ab sent. 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 BONES: Hypertrophic facet arthropathy with degenerative grade 1 anterolisthesis L4-L5. IMPRESSION: 1. THE BILE DUCT IS DILATED UP TO 1 CM ALONG WITH SOME INTRAHEPATIC BILIARY DUCTAL DILATATION WELL . NO FILLING DEFECT IDENTIFIED BY CT. CORRELATE WITH ALKALINE PHOSPHATASE AND BILIRUBIN LEVELS TO EXC LUDE UNDERLYING BILIARY OBSTRUCTION. PATIENT STATUS POST CHOLECYSTECTOMY. 2. PROMINENT FLUID-FILLED SMALL BOWEL LOOPS MID TO LOWER ABDOMEN AND PELVIS MAYBE TRANSIENT. MILD ILE US OR ENTERITIS IS ALSO A CONSIDERATION.
[2023-05-15] MEDS ORDERED: HYDROmorphone 0.5 MG/0.5 ML SYRINGE IVP STA (14:56)
[2023-05-15] MEDS ORDERED: diphenhydrAMINE 50 MG/ML 1 ML VIAL IVP STA (14:56)
[2023-05-15] MEDS ORDERED: KETOROLAC 15 MG/ML 1 ML VIAL IVP STA (14:56)
[2023-05-15 16:33] VITALS: RESP 18
[2023-05-15 17:42] VITALS: BP 140/91; PULSE 77
== END 2023-05-15 17:30 | disposition home or self-care (01) ==
LOC: EC 12:05
DX: U07.1 COVID-19 (principal); G89.18 Other acute postprocedural pain; R10.30 Lower abdominal pain, unspecified; R07.9 Chest pain, unspecified; Z87.891 Personal history of nicotine dependence; Z86.59 Personal history of other mental and behavioral disorders; Z91.041 Radiographic dye allergy status; Z88.8 Allergy status to other drugs, medicaments and biological substances
CPT/HCPCS: 99285; 96374; 96375 ×2; 96376; 96361 ×2; 36415; 93005; 85379; 83880; 80053; 83605; 83735; 84484; 85025; 85610; 85730; 87635; 71275; 74177; J1200; J1170 ×2; J1885; Q9967